=== PATIENT | male | born 1960 | race Caucasian/White ===

== ENCOUNTER 2024-07-01 17:14 | Emergency (ER) | payer MEDICAID ==
[~2024-07-01] VITALS: Ht 182.9 cm; Wt 91.0 kg
[2024-07-01 17:15] VITALS: PULSE 86; RESP 26
[2024-07-01] MEDS ORDERED: EPINEPHRINE 5 MG in SODIUM CHLORIDE 0.9% 245 ML IV STA (17:46)
[2024-07-01] MEDS ORDERED: PIPERACILLIN/TAZO 3.375G/50ML 50 ML IV ONE (18:00)
[2024-07-01] MEDS ORDERED: VANCOMYCIN 1G PREMIX 200 ML IV ONE (18:00)
[2024-07-01 18:14] LABS: MEAN CORPUSCULAR HEMOGLOBIN 29.2 pg (28.0-32.0); MEAN CORPUSCULAR HGB CONC 31.1 g/dL (31.0-37.0); MEAN CORPUSCULAR VOLUME 93.8 fL (80.0-94.0); MEAN PLATELET VOLUME 7.8 fl (7.4-10.4); PLATELET 174 x1000/uL (130-400); RED CELL DISTRIBUTION WIDTH 14.5 % (11.6-14.6); WHITE BLOOD COUNT 36.2 x1000/uL (4.5-11.0)
[2024-07-01 18:25] LABS: CARBON DIOXIDE 12 mEq/L (21-32); CHLORIDE 90 mEq/L (98-107); POTASSIUM 5.5 mEq/L (3.5-5.1); SODIUM 124 mEq/L (136-145)
[2024-07-01 18:26] LABS: CALCIUM 12.8 mg/dL (8.7-10.4)
[2024-07-01 18:26] LABS: BG BASE EXCESS -22.6 mmol/L (-2.0-3.0); BG CARBOXYHEMOGLOBIN 0.9 % (0.5-1.5); BG DEOXYHEMOGLOBIN 57.8 % (0.0-5.0); BG HCO3 ACT 11.8 mmol/L (21.0-28.0); BG METHEMOGLOBIN 0.1 % (0.5-1.5); BG OXYGEN SATURATION 41.6 % (94.0-98.0); BG OXYHEMOGLOBIN 41.2 % (94.0-98.0); BG PCO2 92.6 mmHg (35.0-48.0); BG PH 6.723 (7.350-7.450); BG PO2 45.9 mmHg (83.0-108.0); BG TOTAL HEMOGLOBIN 7.1 g/dL (13.5-17.5)
[2024-07-01 18:31] LABS: GLUCOSE 355 mg/dL (70-105); UREA NITROGEN BLOOD 44 mg/dL (9-23)
[2024-07-01] MEDS: EPINEPHRINE 5 MG in SODIUM CHLORIDE 0.9% 245 ML IV PRN (18:31)
[2024-07-01] MEDS: NOREPINEPHRINE 8MG/250ML PMX 250 ML IV PRN (18:31)
[2024-07-01 18:32] LABS: ALANINE AMINOTRANSFERASE 226 IU/L (10-49); TROPONIN I HIGH SENSITIVITY 25 ng/L (3.0-53)
[2024-07-01 18:33] LABS: ALBUMIN 3.2 g/dL (3.2-4.8); ASPARTATE AMINOTRANSFERASE 211 IU/L (<34); BILIRUBIN DIRECT 0.4 mg/dL (<=3.0); BILIRUBIN TOTAL 1.1 mg/dL (0.1-1.0); CREATINE KINASE 469 IU/L (46-171); PROTEIN TOTAL 5.4 g/dL (6.0-8.3)
[2024-07-01 18:34] LABS: DIFFERENTIAL COMMENT 1
[2024-07-01 18:37] LABS: HEMATOCRIT. 18.7 % (42.0-52.0); HEMOGLOBIN. 5.8 g/dL (14.0-18.0)
[2024-07-01] MEDS: SODIUM CHLORIDE 0.9% (SEPSIS BOLUS) IV ONE (18:37)
[2024-07-01 18:38] LABS: INR 1.2; PROTHROMBIN TIME 13.5 sec (9.6-11.0)
[2024-07-01 18:45] LABS: LACTIC ACID 15.8 mmol/L (0.4-2.0)
[2024-07-01] MEDS: VECURONIUM BROMIDE 10 MG/VIAL IV ONE (19:00)
[2024-07-01] MEDS ORDERED: NOREPINEPHRINE 8MG/250ML PMX 250 ML IV PRN (19:00)
[2024-07-01] MEDS ORDERED: EPINEPHRINE 10 MG in SODIUM CHLORIDE 0.9% 240 ML IV PRN (19:00)
[2024-07-01 19:18] LABS: BETA HYDROXYBUTYRATE 0.4 mMol/L (0.0-0.3)
[2024-07-01 19:25] VITALS: TEMP 36.50292; O2SAT 98
[2024-07-01 19:33] LABS: PLATELET ESTIMATE NORMAL; TOXIC GRANULATION 1+
[2024-07-01 19:34] LABS: GIANT PLATELETS 1+
[2024-07-01] MEDS: EPINEPHRINE 10 MG in SODIUM CHLORIDE 0.9% 240 ML IV PRN (19:56)
[2024-07-01] MEDS: HYDROCORTISONE SOD SUCCINATE 100 MG/2 ML VIAL IV ONE (20:00)
[2024-07-01] MEDS ORDERED: NOREPINEPHRINE 32 MG in DEXT 5% WATER 218 ML IV PRN (20:00)
[2024-07-01] MEDS ORDERED: PHENYLEPHRINE 100 MG in DEXT 5% WATER 240 ML IV PRN (20:00)
[2024-07-01 20:14] LABS: PARTIAL THROMBOPLASTIN TIME 80.3 sec (23.4-31.0)
[2024-07-01 20:17] VITALS: O2SAT 90
[2024-07-01] MEDS: PROPOFOL 10MG/ML 100ML 100 ML IV SCH (20:17)
[2024-07-01] MEDS: NOREPINEPHRINE 32 MG in DEXT 5% WATER 218 ML IV PRN (21:23)
[2024-07-01] MEDS: PHENYLEPHRINE 100 MG in DEXT 5% WATER 240 ML IV PRN (21:25)
[2024-07-01] MEDS ORDERED: VASOPRESSIN 20 UNIT in SODIUM CHLORIDE 0.9% 99 ML IV PRN ×2 (21:30→22:00)
[2024-07-01] MEDS: SODIUM BICARBONATE 8.4% 50MEQ/50ML SYR IV NR ×2 (21:45)
[2024-07-01] MEDS: HYDROCORTISONE SOD SUCCINATE 100 MG/2 ML VIAL IV SCH (22:00)
[2024-07-01] MEDS: SODIUM BICARBONATE 150 MEQ in DEXTROSE 5% WATER 850 ML IV SCH (22:41)
[2024-07-01 23:14] LABS: CHLORIDE 94 mEq/L (98-107); POTASSIUM 5.8 mEq/L (3.5-5.1); SODIUM 128 mEq/L (136-145)
[2024-07-01 23:16] LABS: CARBON DIOXIDE 12 mEq/L (21-32)
[2024-07-01 23:21] LABS: CREATININE 1.8 mg/dL (0.6-1.3); GLUCOSE 137 mg/dL (70-105); UREA NITROGEN BLOOD 43 mg/dL (9-23)
[2024-07-01 23:23] LABS: ALANINE AMINOTRANSFERASE > 1100 IU/L (10-49); ALBUMIN 2.3 g/dL (3.2-4.8); ASPARTATE AMINOTRANSFERASE > 1000 IU/L (<34); BILIRUBIN TOTAL 1.2 mg/dL (0.1-1.0); PROTEIN TOTAL 3.7 g/dL (6.0-8.3)
[2024-07-02 00:25] VITALS: BP 145/110
[2024-07-02] MEDS: ALBUMIN HUMAN 25GM/500ML (5%) IV SCH (00:25)
[2024-07-02 00:28] VITALS: PULSE 111; RESP 28
[2024-07-02] MEDS ORDERED: IPRATROPIUM/ALBUTEROL 0.5-3(2.5)MG/3ML NEB NEB PRN (01:30)
[2024-07-02] MEDS ORDERED: DIPHENHYDRAMINE 50MG/ML VIAL IV PRN (01:30)
[2024-07-02] MEDS ORDERED: ACETAMINOPHEN 650MG/20.3ML UDC GT PRN ×2 (01:30)
[2024-07-02] MEDS ORDERED: ONDANSETRON HCL 4MG/2ML INJ IV PRN (01:30)
[2024-07-02] MEDS ORDERED: DEXTROSE 50% WATER 50ML SYRINGE IV PRN (01:45)
[2024-07-02] MEDS: SODIUM CHLORIDE 0.9% 1,000 ML IV SCH (01:50)
[2024-07-02] MEDS: INSULIN REGULAR (HUMULIN R) 1000UNITS/10ML VIAL IV NR (02:00)
[2024-07-02] MEDS: DEXTROSE 50% WATER 50ML SYRINGE IV NR (02:00)
[2024-07-02] MEDS: SODIUM BICARBONATE 8.4% 50MEQ/50ML SYR IV NR (02:26)
[2024-07-02] MEDS: SODIUM CHLORIDE 0.9% 1,000 ML IV ONE (02:26)
[2024-07-02] MEDS ORDERED: INSULIN LISPRO 100 UNITS/ML SUBCUT SCH (08:20)
[2024-07-02] MEDS ORDERED: PANTOPRAZOLE SODIUM 40 MG/VIAL IV SCH (09:00)
[2024-07-02] MEDS ORDERED: BLOOD SUGAR DIAGNOSTIC STRIP TEST SCH (09:00)
== END 2024-07-02 06:45 ==
LOC: ER 17:14 → EDBEDREQ 20:01 → EDBEDREQTM 20:01 → ER 07-02 06:45 → CANBEDREQ 07-02 07:48
DX: A41.9 Sepsis, unspecified organism (principal); R65.21 Severe sepsis with septic shock; R07.89 Other chest pain; I11.0 Hypertensive heart disease with heart failure; I50.9 Heart failure, unspecified; I46.9 Cardiac arrest, cause unspecified; E87.1 Hypo-osmolality and hyponatremia; E11.65 Type 2 diabetes mellitus with hyperglycemia; D64.9 Anemia, unspecified; E87.5 Hyperkalemia; N17.9 Acute kidney failure, unspecified
CPT/HCPCS: 80076; 80053; 80048; 82010; 82550; 82962; 83880; 83605; 83690; 83735; 85025; 85610; 85730; 86850; 86900; 86901; 86920; 87040; 84484; 36415; 84145; 71045; 82805; 82375; 92950; 82803; 31500; 93005; 31603; 36556; 99291; 99292; 36600; 93970; P9041 ×2; J3490 ×6; J1720; J2704; J7060 ×2; J7070; J7050 ×3; J7030; C1893; Z7610 ×7; 94002; P9016